=== PATIENT | male | born 1995 | race Caucasian/White ===

== ENCOUNTER 2020-08-22 22:59 | Emergency (ER) | payer SELFPAY ==
[2020-08-22] MEDS ORDERED: Fluorescein Opthalmic Strip ONE (23:12)
[2020-08-22] MEDS ORDERED: Proparacaine 0.5% Opth 15 ML BOT ONE (23:12)
[2020-08-23] MEDS ORDERED: Fluorescein Opthalmic Strip ONE (00:25)
== END 2020-08-23 01:17 | disposition home or self-care (01) ==
LOC: ERS 22:59
DX: T15.02XA Foreign body in cornea, left eye, initial encounter (principal)
CPT/HCPCS: 99283